=== PATIENT | male | born 1970 | race Hispanic/Latino ===

== ENCOUNTER 2020-01-27 16:34 | Emergency (ER) | payer SELFPAY ==
[~2020-01-27] VITALS: Ht 175.3 cm; Wt 90.7 kg
[2020-01-27] MEDS ORDERED: CEFTRIAXONE SOD 1 GM VIAL IM ONE (17:15)
[2020-01-27] MEDS ORDERED: ACETAMINOPHEN 325 MG TAB PO ONE (17:15)
[2020-01-27] MEDS ORDERED: IBUPROFEN 200 MG TAB PO ONE (17:15)
[2020-01-27] MEDS ORDERED: IBUPROFEN 600 MG TAB ONE (17:16)
[2020-01-27] MEDS ORDERED: LIDOCAINE HCL 1% LOCAL INJ 20 ML VIAL ONE (17:17)
--- OUTSIDE RECORDS SUMMARY | 2020-01-27 17:18 | XMS REPORT | Continuity of Care Document ---
Author Author [facility] Organization [facility] Address [address] [place] [address] Phone Unavailable Care Team Providers Care Dairy Associate Name Role Phone Unavailable Unavailable Payers Payer Name Policy Type Policy Number Effective Date Expiration Date S ource Problems Condition Name Condition Details Condition Category Status Onset Date Resolution Date Last Treatment Date Treating Clinician Comments Source Gout Gout Problem Active 2017-05-25 00:00:[address] [facility] Coronary arteriosclerosis Coronary Arteriosclerosis Problem Ac tive 2017-02-13 00:00:[address] [facility] Type II diabetes mellitus uncontrolled Type II Diabetes Olivia itus Uncontrolled Problem Active 2016-03-12 00:00:[address] [facility] Mixed hyperlipidemia Mixed [facility] Body mass index 30+ - obesity Body Mass Index 30+ - Obesity Problem Active 2016-03-12 00:00:[address] [facility] Lightheadedness Lightheadedness Problem Active 2016-03-12 00:00:[address] [facility] ALT (SGPT) level raised ALT (SGPT) Level Raised Problem Active 2016-03-12 00:00:[address] [facility] Allergies, Adverse Reactions, Alerts Allergy Name Allergy Type Status Severity Reaction(s) Onset Date Inacti ve Date Treating Clinician Comments Source No Known Allergies DA Active U 2018-08-01 00:00:00 [facility] No Known Contrast Allergies DA Active U 2007-03-19 00:00: 00 [facility] No Known Drug Allergies DA Active U 2007-03-19 00:00:00 [facility] No Known Food Allergies DA Active U 2007-03-19 00:00:00 [facility] No Known Other Allergies DA Active U 2007-03-19 00:00:00 [facility] Social History Smoking Status Start Date Stop Date Source Never Smoker [facility] moriah Medications Ordered Medication Name Filled Medication Name Start Date Stop Da te Current Medication? Ordering Clinician Indication Dosage Frequency Signature (SIG) Comments Components Source allopurinol 100 mg tablet Take 1 tablet twice a day by oral route. allopurinol 100 mg tablet Take 1 tablet twice a day by oral route. No 1 BID allopurinol 100 mg tablet Take 1 tablet twice a day by oral route. [facility] Hiram Aspirin QD Hiram Aspirin QD No Hiram Aspirin QD [facility] metformin 500 mg tablet Take 2 tablets twice a day by oral route. metformin 500 mg tablet Take 2 tablets twice a day by oral route. No 2 BID metformin 500 mg tablet Take 2 tablets twice a day by oral route. [facility] metoprolol tartrate 25 mg tablet Take 0. 5 tablets twice a day by oral route for 90 days. metoprolol tartrate 25 mg tablet Take 0. 5 tablets twice a day by oral route for 90 days. No .5 BID metop rolol tartrate 25 mg tablet Take 0.5 tablets twice a day by oral route for [address] [facility] pravastatin 40 mg tablet Take 1 tablet every day by or al route at bedtime. pravastatin 40 mg tablet Take 1 tablet every day by oral route at bedtime. No 1 Q1D pravastatin 40 mg tablet Take 1 tablet every day by oral route at bedtime. [facility] Vital Signs Vital Name Observation Time Observation Value Comments Source BP Diastolic 2018-09-18 00:00:00 90 mm[Hg] [facility] Height 2018-09-18 00:00:00 69 [in_i] [facility] BMI (Body Mass Index) 2018-09-18 00:00:00 31.9 kg/m2 [facility] BP Systolic 2018-09-18 00:00:00 140 mm[Hg] [facility] Body Weight 2018-09-18 00:00:00 216 [lb_av] [facility] Procedures Procedure Date / Time Performed Performing Clinician Roby e Cholecystectomy (Gall Bladder Removal) [facility] Plan of Care Planned Activity Planned Date Details Comments Source Diagnostic Test Pending 2018-09-18 00:00:00 microalbumin:cre atinine ratio, urine [code = microalbumin:creatinine ratio, urine] [facility] Diagnostic Test Pending 2018-09-18 00:00:00 HbA1c (hemoglobi n A1c), blood [code = HbA1c (hemoglobin A1c), blood[facility] Pending 2018-09-18 00:00:00 lipid panel, ser um [code = lipid panel, serum] [facility] Diagnostic Test Pending 2018-09-18 00:00:00 CMP, serum or pl asma [code = CMP, serum or plasma] [facility] Diagnostic Test Pending 2018-09-18 00:00:00 uric acid, serum or plasma [code = uric acid, serum or plasma] [facility] Diagnostic Test Pending 2018-09-18 00:00:00 urinalysis, dips tick [code = urinalysis, dipstick] [facility] Instructions [facility] Encounters Start Date/Time End Date/Time Encounter Type Admission Type [facility] Facility Care Department Encounter ID Source 2018-09-18 00:00:00 2018-09-18 00:00:00 Christian Poole MD: [id number] [place] [address], Ph. [facility] [id number] [facility] Results Test Description Test Time Test Comments Results Result Comments Source BASIC METABOLIC PANEL 2018-08-01 12:31:00 Test Item SODIUM (test code = NA) 138 mmol/L 136-145 N POTASSIUM (test code = K) 3.4 mmol/L 3.5-5.1 L CHLORIDE (test code = CL) 102.0 mmol/L 98-107 N CARBON DIOXIDE (test code = CO2) 25.0 mmol/L 21-32 N ANION GAP (test code = GAP) 14.4 10-20 N GLUCOSE (test code = GLU) 278 mg/dL 74-106 H BLOOD UREA NITROGEN (test code = BUN) 15 mg/dL 7-18 N GLOMERULAR FILTRATION RATE (test code = GFR) > 60 mL/min >=60 Estimated GFR by using Modified MDRD formula.Chronic kidney disease is defined as either kidney damageor GFR <60 mL/min/1.73 m2 for >3 months. CREATININE (test code = CREAT) 0.80 mg/dL 0.7-1.3 N BUN/CREATININE RATIO (test code = BUN/CREA) 18.2 10-20 N CALCIUM (test code = CA) 9.2 mg/dL 8.5-10.1 N [id number] 12:31:00* Test Item Value Reference Range Interpretation Comments TROPONIN-I (test code = TROPI) <0.015 ng/mL 0-0.045 N CBC W/O [id number] 11:49:00* Test Item Value Reference Range Interpretation Comments WHITE BLOOD CELL (test code = WBC) K/mm3 4.5-12.5 RED BLOOD CELL (test code = RBC) mill/mm3 4.0-5.8 HEMOGLOBIN (test code = HGB) 16.0 gram/dL 13.0-17.5 N HEMATOCRIT (test code = HCT) 48.8 % 42.0-52.0 N MEAN CELL VOLUME (test code = MCV) fL 80-98 MEAN CELL HGB (test code = MCH) picogram 27.0-33.0 MEAN CELL HGB CONCETRATION (test code = MCHC) gram/dL 33.0-36. 0 RED CELL DISTRIBUTION WIDTH (test code = RDW) % 11.6-16. 2 PLATELET COUNT (test code = PLT) K/mm3 150-450 MEAN PLATELET VOLUME (test code = MPV) fL 6.7-11.0 CBC W/O [id number] 11:49:00* Test Item Value Reference Range Interpretation Comments WHITE BLOOD CELL (test code = WBC) 14.0 K/mm3 4.5-12.5 H RED BLOOD CELL (test code = RBC) 5.70 mill/mm3 4.0-5.8 N HEMOGLOBIN (test code = HGB) 16.0 gram/dL 13.0-17.5 N HEMATOCRIT (test code = HCT) 48.8 % 42.0-52.0 N MEAN CELL VOLUME (test code = MCV) 85.6 fL 80-98 N MEAN CELL HGB (test code = MCH) 28.1 picogram 27.0-33.0 N MEAN CELL HGB CONCETRATION (test code = MCHC) 32.8 gram/dL 33.0-36. 0 L RED CELL DISTRIBUTION WIDTH (test code = RDW) 12.7 % 11.6-16. 2 N PLATELET COUNT (test code = PLT) 310 K/mm3 150-450 N MEAN PLATELET VOLUME (test code = MPV) 9.3 fL 6.7-11.0 N - XR CHEST 1 [id number] 10:49:00 FAX: Molina Grande DO [place]: B St: REG Name: OSMEL VILLANUEVA [facility] : 12/28/18 71 Age/S: 47/M [address] [facility] Unit #: [id number] Loc: [place] [address] Phys: Molina Grande DO Acct: [id number] Dis Date: Status: REG ER PHONE #: [phone] Exam Date: 08/01/2018 1027 FAX #: [phone] Reason: CHEST PAIN EXAMS: CPT CODE: [id number] XR CHEST 1 V [id number] HISTORY: Chest pain. COMPARISON: None available. No acute infiltrates, effusion or con gestion is noted. The cardiac and mediastinal silhouette are withi n normal limits. IMPRESSION: No acute infilt rates, effusion or congestion. at 1049 Reported and signed by: Venus Chavarria M.D. CC: Molina Grande DO Technologist: DOMINIK FREDERICK RT(R); Yajaira Calle RT(R) Trnmord Date/Time/By: 08/01/2018 (3043) : By: [email or web address] Or ig Print D/T: S: 08/01/2018 (2709) PAGE 1 Signed Report
--- OUTSIDE RECORDS SUMMARY | 2020-01-27 17:18 | XMS REPORT | Encounter Summary ---
Author Organization Unknown Address [address] [place] [address] Phone [phone] Care Team Providers Care Receiver Stocker Name Role Phone Christian Poole MD 3 [phone] True Espinoza MD 82 [phone] Usman Pruitt MD 118 [phone] Reason for Visit Coronary arteriosclerosis; Mixed hyperli pidemia; Type II diabetes mellitus uncontrolled; Gout; diabetic foot exam; urinary issues/incontinence Instructions 1. Immunization refused 2. Body mass index 30+ - obesity body mass index: care instructions learning about healthy weight 3. Gout allopurinol 100 mg tablet uric acid, serum or plasma 4. Mixed hyperlipidemia lipid panel, serum CMP, serum or plasma pravastatin 40 mg tablet 5. Type II diabetes mellitus uncontrolle d type 2 diabetes: care instructions microalbumin:creatinine ratio, urine HbA1c (hemoglobin A1c), blood metformin 500 mg tablet urinalysis, dipstick 6. Coronary arteriosclerosis metoprolol tartrate 25 mg tablet 7. Referral to check airman declined by subject Discussion Note: None recorded. Plan of Care Patient Instructions resume all meds,rtc 2 weeks Reminders Provider Appointments Est Patient 10/02/2018 2:00PM Christian robertson MD Lab Microalbumin:creatinine Ratio, Urine 09/18/2018 [facility] Laboratory HbA1C (Hemoglobin a1C), Blood 09/18/2018 [facility] Lipid Panel, Serum 09/18/2018 [facility] CMP, Serum or Plasma 09/18/2018 [facility] Uric Acid, Serum or Plasma 09/18/2018 [facility] Urinalysis, Dipstick 09/18/2018 [facility] [place] Referral None recorded. Procedures None recorded. Surgeries None recorded. Imaging None recorded. Medications Name Start Date allopurinol 100 mg tablet Take 1 tablet twice a day by oral route. Hiram Aspirin QD metformin 500 mg tablet Take 2 tablets twice a day by oral route. metoprolol tartrate 25 mg tablet Take 0.5 tablets twice a day by oral route for 90 days. pravastatin 40 mg tablet Take 1 tablet every day by oral route at bedtime. Medications Administered None recorded. Vitals Height Weight BMI Blood Pressure 5 ft 9 in 216 lbs 31.9 kg/m2 (1) 140/90 mm[H g] (2) 120/84 mm[Hg] Lab Results None recorded. Allergies Code Code System Name Reaction Severity Status Onset NKDA Problems Name Status Onset Date Source Type II Diabetes Mellitus Uncontrolled Active 6 Mixed Hyperlipidemia Active 03/12/2016 Body Mass Index 30+ - Obesity Active 03/12/2016 Lightheadedness Active 03/12/2016 ALT (SGPT) Level Raised Active 03/12/2016 Coronary Arteriosclerosis Active 02/13/2017 Gout Active 05/25/2017 Procedures Date Name Performed by Cholecystectomy (Gall Bladder Removal) I nformation not available Vaccine List None recorded. Social History Smoking Status Never Smoker Past Encounters 09/18/2018 Immunization Refused; Body Mass Index 30+ - Obesity; Gout; Mixed Hyperlipidemia; Type II Diabetes Mellitus Uncontrolled; Coronary Arteriosclerosis; Referral to Outbound Sales Professional Declined by Subject Christian Poole MD: [address] [place] [address], Ph. History of Present Illness Note:f/u chronic conditions,out of all meds 6 months,no episodes gout since 06/05
c/o polydipsia/polyuria Review of Systems:ROS as noted in the HPI Review of Systems None recorded. Physical Exam Diabetes Reported By: Patient Constitutional: General Appearance: no signs of discomfort, no pain, not difficult to engage, healthy-appearing, well-developed, overweight. Level of Distress: no acute distress Eyes: Pupils: PERRLA. Extraocular Movements: EOMI Neck: Thyroid: no enlargement, non -tender, no nodules. Lymph Nodes: no anterior cervical LAD, no posterior cervical LAD, no submandibular LAD, no submental LAD Lungs: Auscultation: breath sounds normal, clear to auscultation, no wheezing, no rales/crackles, no rhonchi Cardiovascular: Heart Auscultation: RRR, nor mal S1, normal S2. Murmurs: no murmurs Extremities: Extremities: no cyanosis, no edema, no varicosities, no ulcers. Pulses: dorsalis pedis normal, posterior tibialis absent. Skin: no dry or cracked skin, no bunion
--- NOTE | 2020-01-27 17:28 | Emergency Department Note ---
History of Present Illnes History of Present Illness Chief Complaint: Eye, Ear, Nose, Throat, Dental History of Present Illness This is a 49 year old male hx of bad dentition c/o left upper jaw pain 3 days, getting worse, he has multiple dental cavities, rotten teeth to the root premolar and molars. Arrival Mode: Car Epic Director Required: No Onset (how long ago): day(s) Radiation: Reports neck Severity: moderate Onset quality: gradual Duration (how long): day(s) Timing of current episode: constant Progression: waxing and waning Chronicity: recurrent Relieving factors: rest Exacerbating factors: eating Associated symptoms: Reports denies other symptoms Treatments prior to arrival: none Past Medical/Family History Physician Review I have reviewed the patient's past medical and family history. Any updates have been documented here. Past Medical History Recent Fever: No Clinical Suspicion of Infectio: No New/Unexplained Change in Ment: No Past Medical History: Diabetes Other Surgery: dental Social History Smoking Cessation: Unknown if ever smoked Physically hurt or threatened: No Family History Family history of heart diseas: No Review of Systems Review of Systems Constitutional: Reports no symptoms EENTM: Reports as per HPI Cardiovascular: Reports no symptoms Respiratory: Reports no symptoms Gastrointestinal: Reports no symptoms Genitourinary: Reports no symptoms Musculoskeletal: Reports no symptoms Integumentary: Reports no symptoms Neurological: Reports no symptoms Psychological: Reports no symptoms Endocrine: Reports no symptoms Hematological/Lymphatic: Reports no symptoms Physical Exam Related Data Allergies: Coded Allergies: No Known Allergies (Unverified , 01/27/20) Vital signs reviewed: Yes Physical Exam CONSTITUTIONAL Constitutional: Present well-developed, Present well-nourished HENT HENT: Present normocephalic, Present atraumatic, Present oropharynx clear/moist, Present nose normal, Present dental caries HENT L/R: Present left ext ear normal, Present right ext ear normal EYES Eyes: Reports PERRL, Reports conjunctivae normal NECK Neck: Present ROM normal PULMONARY Pulmonary: Present effort normal, Present breath sounds normal CARDIOVASCULAR Cardiovascular: Present regular rhythm, Present heart sounds normal, Present capillary refill normal, Present normal rate GASTROINTESTINAL Abdominal: Present soft, Present nontender, Present bowel sounds normal GENITOURINARY Genitourinary: Present exam deferred SKIN Skin: Present warm, Present dry MUSCULOSKELETAL Musculoskeletal: Present ROM normal NEUROLOGICAL Neurological: Present alert, Present oriented x 3, Present no gross motor or sensory deficits PSYCHOLOGICAL Psychological: Present mood/affect normal, Present judgement normal Assessment & Plan Medical Decision Making MDM dental infection Assessment & Plan Final Impression: (1) Dental abscess (2) Infected dental caries Depart Disposition: HOME, SELF-[facility] Meds Reported Medications Metformin Hcl (METFORMIN HCL) 500 Mg Tablet, 500 MG PO BID, #60 TAB 01/27/20 Lisinopril (LISINOPRIL) 5 Mg Tablet, 5 MG PO DAILY, #30 TAB 01/27/20 Medications in the ED Ceftriaxone Sodium 1 gm ONCE ONCE IM ; Start 01/27/20 at 17:15; Stop 01/27/20 at 17:16; Status UNV Ibuprofen 600 mg NOW ONCE PO ; Start 01/27/20 at 17:15; Stop 01/27/20 at 17:16; Status UNV Acetaminophen 650 mg NOW ONCE PO ; Start 01/27/20 at 17:15; Stop 01/27/20 at 17:16; Status UNV Ibuprofen 600 mg STK-MED ONCE .ROUTE ; Start 01/27/20 at 17:16; Stop 01/27/20 at 17:13; Status DC Lidocaine HCl 20 ml STK-MED ONCE .ROUTE ; Start 01/27/20 at 17:17; Stop 01/27/20 at 17:14; Status DC Physician Attestation Provider Attestation He has his own dentist to f/u HILLARY LINN MD Jan 27, 2020 17:27
[2020-01-27] MEDS ORDERED: LISINOPRIL5 MG PO (18:14)
[2020-01-27] MEDS ORDERED: METFORMIN HCL500 MG PO (18:14)
[2020-01-27 18:16] VITALS: BP 119/85
== END 2020-01-27 17:48 | disposition home or self-care (01) ==
LOC: FSED 16:34
DX: K04.7 Periapical abscess without sinus (principal); K02.9 Dental caries, unspecified; E11.9 Type 2 diabetes mellitus without complications
CPT/HCPCS: 96372; 99283; J0696; J2001